=== PATIENT | male | born 1990 | race Caucasian/White ===

== ENCOUNTER 2016-09-21 11:03 | Emergency (ER) | payer BC ==
--- NOTE | ~2016-09-21 | CR63 ---
[facility]. [facility] A Service of [facility] & [facility] RADIOLOGY TEXT RESULTS PATIENT: RUBEN MTZ JR LOCATION: SED : 91 UNIT #: [id number] AGE: [address]: Fabi Tejeda SEX: M ORDER DR: [id number] [address] [address] [id number] E MR#: [id number] Acc #: [id number] NAME: RUBEN MTZ JR : 1990 SEX: M STUDY DATE/TIME: 09/21/2016 11:56 UNIT: SED ROOM: STUDY DESCRIPTION: CR Chest 2 View Attending Physician: Fabi Tejeda Pa-C Ordering Physician: Fabi Tejeda Pa-C Primary Care Physician: Primary Care Physician No MEDICAL IMAGING REPORT This report is preliminary unless electronic signature is present. EXAM Chest 2 views, 09/21/2016 11:56 hours HISTORY 25-year-old with complaint of cough for 1 week. COMPARISON 03/10/2014 FINDINGS Portable upright chest demonstrates normal cardiac, mediastinal and hilar contours. Lungs are mildly hyperinflated with underlying calcified granulomata. There is no definite acute pulmonary density or pleural effusion. IMPRESSION Mild hyperinflation with calcified granulomatous change. No acute cardiopulmonary findings. Dictated by... Beryl Gaspar M.D. THIS IS AN ELECTRONICALLY VERIFIED REPORT Beryl Gaspar M.D. at 09/21/2016 2:29 PM Melody TD: 09/21/2016 12:54 JOB #: [id number] MEDICAL IMAGING REPORT Page 1 of 1
[~2016-09-21 11:03] MED LIST: ALBUTEROL17 GM INH; ALEVE220 M1 PO; AUGMENTIN875 MG PO; BENADRYL25 M1 PO; FLEXERIL10 MG PO; IBUPROFEN PO; IBUPROFEN800 MG PO; LORTAB 5/500 TA1 TA1 PO; NAPROSYN250 M1 PO; NO MEDICATIONS; SUDAFED PO; ULTRAM PO
[2016-09-21] MEDS ORDERED: ACETAMINOPHEN (11:04)
[2016-09-21] MEDS ORDERED: MUCINEX (11:05)
[2016-09-21 11:30] LABS: INFLUENZA A NEG (NEG); INFLUENZA B NEG (NEG)
[2016-10-17] MEDS ORDERED: NO MEDICATIONS (21:04)
== END 2016-09-21 12:29 | disposition home or self-care (01) ==
LOC: SED 11:03
PROVIDERS: Physician Assistant Medical
DX: J06.9 Acute upper respiratory infection, unspecified (principal)
CPT/HCPCS: 71020; 87651; 87804; 99283

== ENCOUNTER 2016-09-23 17:15 | Emergency (ER) | payer BC ==
[~2016-09-23 17:15] MED LIST changes: +ACETAMINOPHEN; +MUCINEX
[2016-10-17] MEDS ORDERED: NO MEDICATIONS (21:04)
== END 2016-09-23 17:58 | disposition home or self-care (01) ==
LOC: SED 17:15
DX: B34.9 Viral infection, unspecified (principal); R21 Rash and other nonspecific skin eruption; Z91.030 Bee allergy status
CPT/HCPCS: 94640; 99283

== ENCOUNTER 2016-10-17 21:24 | Emergency (ER) | payer BC ==
--- NOTE | ~2016-10-17 | CR58 ---
[facility]. [facility] A Service of [facility] & [facility] RADIOLOGY TEXT RESULTS PATIENT: RUBEN MTZ JR LOCATION: SED : 91 UNIT #: [id number] AGE: [address]: CHI IVY SEX: M ORDER DR: [id number] [address] [address] [id number] E MR#: [id number] Acc #: [id number] NAME: RUBEN MTZ JR : 1990 SEX: M STUDY DATE/TIME: 10/17/2016 21:34 UNIT: SED ROOM: STUDY DESCRIPTION: CR Cervical Spine 2 or 3 Views Attending Physician: Chi Ivy Ordering Physician: Chi Ivy Primary Care Physician: Thelma Primary Care Physician MEDICAL IMAGING REPORT This report is preliminary unless electronic signature is present. EXAM Cervical spine, 3 views COMPARISON None INDICATIONS 25-year-old male with posterior neck pain for 1 week after moving furniture. FINDINGS Cervical spine is anatomically aligned. No evidence of acute fracture or significant degenerative change. IMPRESSION Exam is within normal limits. Dictated by... Salvador Collins M.D. THIS IS AN ELECTRONICALLY VERIFIED REPORT Salvador Collins M.D. at 10/19/2016 3:31 PM BILL/julio césar TD: 10/18/2016 00:33 JOB #: [id number] MEDICAL IMAGING REPORT Page 1 of 1
[2016-10-17] MEDS ORDERED: MEDROL DOSEPAK4 MG DOB (22:49)
[2016-10-17] MEDS ORDERED: MOTRIN600 M1 PO (22:49)
== END 2016-10-17 22:49 | disposition home or self-care (01) ==
LOC: SED 21:24
DX: S16.1XXA Strain of muscle, fascia and tendon at neck level, initial encounter (principal); X50.9XXA Other and unspecified overexertion or strenuous movements or postures, initial encounter; Y92.009 Unspecified place in unspecified non-institutional (private) residence as the place of occurrence of the external cause
CPT/HCPCS: 72040; 99283